=== PATIENT | female | born 1970 | race Caucasian/White ===

== ENCOUNTER 2016-11-14 13:18 | Emergency (ER) | payer SELFPAY ==
[~2016-11-14] VITALS: Ht 172.7 cm; Wt 80.0 kg
[~2016-11-14 13:18] MED LIST: ALEVE220 M1 OR; AUGMENTIN875TAB PO; B-12500 MC1 OR; CIPRO500 MG OR; DARVOCET N-100100 - OR; DARVOCET-N100 MG OR; DOXYCYC MONO100 MG OR; DOXYCYCL HYC100 MG OR; FERR SULFATE325 MG PO; FIORICET PO; FLAGYL500 MG OR; FOLIC ACID1 MG PO; GENTAMICIN SULF5 ML OS; HYDROCHLOROT12.5 MG PO; IBUPROFEN600 MG PO; LORTAB 5 OR; LORTAB 7.5 OR; LORTAB5 OR; MEDDOSEPAK OR; MERCAPTOPUR50 MG OR; MULTIVITAMIN OR; OGESTREL OR; ORTHO TRI-CYCLEN LO PO; PREDNISONE20 MG OR; PREMARIN1.25 MG PO; PRILOSEC20 MG OR; PT DOES NOT KNOW; REMICADE INJ100 MG IV; STOOL SOFTENER100 MG PO; TRAMADOL HCL50 MG OR; ULTRAM50 M1 OR; ULTRAM50 MG OR; WELLBUTRIN SR150 MG PO; WELLBUTRIN150 M1 OR; ZITHROMAX500 MG PO; ZOFRAN ODT4 MG OR; ZOFRAN4 M1 SL; ZOFRAN4 MG/TAB PO; [UNRECOGNIZED DRUG - REMARK]; [UNRECOGNIZED DRUG - REMARK]
[2016-11-14 14:40] LABS: HEMOGLOBIN 13.1 g/dl (12.0-16.0); IMMATURE GRANULOCYTES 0.3 % (0.0-1.0); MEAN CELL VOLUME 91.1 fL CALC (80.0-100.0); MEAN CORPUSCULAR HGB 29.1 pG CALC (26.0-32.0); NEUT# 5.68 thou/uL (2.00-7.15); RED BLOOD COUNT 4.5 mill/uL (4.20-5.60); RED CELL DISTRI WIDTH 13.2 % (11.5-15.5)
[2016-11-14 14:42] LABS: URINE BILIRUBIN - DIPSTICK NEGATIVE (NEGATIVE); URINE BLOOD DIPSTICK SMALL (NEGATIVE); URINE CLARITY CLEAR; URINE COLOR YELLOW; URINE GLUCOSE - DIPSTICK NEGATIVE (NEGATIVE); URINE KETONE NEGATIVE (NEGATIVE); URINE LEUK ESTERASE NEGATIVE (NEGATIVE); URINE NITRITE - DIPSTICK NEGATIVE (Negative); URINE PROTEIN - DIPSTICK NEGATIVE (NEG-TRACE); URINE SPECIFIC GRAVITY 1.015; URINE UROBILINOGEN - DIPSTICK 0.2 E.U./dL (0.2)
[2016-11-14 14:45] LABS: BARBITURATES NEGATIVE (NEGATIVE); COCAINE NEGATIVE (NEGATIVE); METHADONE NEGATIVE (NEGATIVE); OXCYCODONE NEGATIVE (NEGATIVE); TETRAHYDROCANNABIONOL NEGATIVE (NEGATIVE); TRICYLIC ANTIDEPRESSANTS NEGATIVE (NEGATIVE)
[2016-11-14 14:53] LABS: URINE SQUAMOUS EPITHELIAL CELL FEW EPI/hpf (0-FEW); URINE WBC 0-2 WBC/hpf (0-5)
[2016-11-14 14:54] LABS: ALBUMIN 4.5 g/dL (3.2-5.0); ALKALINE PHOSPHATASE 73 u/l (38-126); ANION GAP 18 (6-22 (CALC)); BILIRUBIN, TOTAL 0.4 mg/dL (0.0-1.4); BUN 8 mg/dL (7-17); BUN/CREATININE RATIO 12 (12-20 (CALC)); CALCIUM 9.5 mg/dL (8.4-10.2); CARBON DIOXIDE 27 mmol/l (22-30); CHLORIDE 104 mmol/l (95-108); CREATININE 0.7 mg/dL (0.5-1.0); GFR > 60 ML/MIN (>=60 (CALC)); GFR FOR AFR.AMER. > 60 ML/MIN (>=60 (CALC)); GLUCOSE 75 mg/dL (65-105); POTASSIUM 4.2 mmol/l (3.5-5.1); SGOT/AST 19 u/l (14-36); SGPT/ALT 29 u/l (9-52); SODIUM 144 mmol/l (137-146); TOTAL PROTEIN 7.4 g/dL (6.3-8.2)
[2016-11-14] MEDS ORDERED: ANTIVERT PO (15:39)
[2016-11-14] MEDS ORDERED: ZOFRAN ODT4 MG PO (15:39)
[2016-11-14 16:00] VITALS: BP 124/58
== END 2016-11-14 16:00 | disposition home or self-care (01) | DRG 149 ==
LOC: ED 13:18
PROVIDERS: Emergency Medicine
DX: R42 Dizziness and giddiness (principal); R11.0 Nausea

== ENCOUNTER 2017-12-02 16:03 | Emergency (ER) | payer SELFPAY ==
[~2017-12-02] VITALS: Ht 172.7 cm; Wt 91.0 kg
[~2017-12-02 16:03] MED LIST changes: +ANTIVERT PO; +ZOFRAN ODT4 MG PO
[2017-12-02 17:06] LABS: URINE BILIRUBIN - DIPSTICK NEGATIVE (NEGATIVE); URINE BLOOD DIPSTICK NEGATIVE (NEGATIVE); URINE COLOR YELLOW; URINE GLUCOSE - DIPSTICK NEGATIVE (NEGATIVE); URINE KETONE NEGATIVE (NEGATIVE); URINE LEUK ESTERASE NEGATIVE (NEGATIVE); URINE NITRITE - DIPSTICK NEGATIVE (Negative); URINE PROTEIN - DIPSTICK NEGATIVE (NEG-TRACE); URINE UROBILINOGEN - DIPSTICK 0.2 E.U./dL (0.2)
[2017-12-02 17:07] LABS: URINE CLARITY CLEAR
[2017-12-02] MEDS ORDERED: AUGMENTIN875TAB PO (19:08)
[2017-12-02] MEDS ORDERED: IBUPROFEN600 MG PO (19:08)
[2017-12-02 19:25] VITALS: BP 136/65
== END 2017-12-02 19:40 | disposition home or self-care (01) | DRG 605 ==
LOC: ED 16:03
DX: S60.571A Other superficial bite of hand of right hand, initial encounter (principal); S61.551A Open bite of right wrist, initial encounter; W54.0XXA Bitten by dog, initial encounter; Y93.K9 Activity, other involving animal care; Y92.009 Unspecified place in unspecified non-institutional (private) residence as the place of occurrence of the external cause

== ENCOUNTER 2017-12-05 16:13 | Emergency (ER) | payer SELFPAY ==
[~2017-12-05] VITALS: Ht 172.7 cm; Wt 100.0 kg
[2017-12-05 17:48] VITALS: BP 138/79
== END 2017-12-05 17:50 | disposition home or self-care (01) | DRG 950 ==
LOC: ED 16:13
DX: S51.851D Open bite of right forearm, subsequent encounter (principal); W54.0XXD Bitten by dog, subsequent encounter; Z23 Encounter for immunization

== ENCOUNTER 2018-03-12 08:53 | Emergency (ER) | payer OTHER ==
[~2018-03-12] VITALS: Ht 172.7 cm; Wt 100.0 kg
[2018-03-12 09:37] LABS: HEMATOCRIT 43.1 % (37.0-47.0); HEMOGLOBIN 14.7 g/dl (12.0-16.0); IMMATURE GRANULOCYTES 0.4 % (0.0-5.0); MEAN CELL VOLUME 92.7 fL CALC (80.0-100.0); MEAN CORPUSCULAR HGB 31.6 pG CALC (26.0-32.0); MEAN CORPUSCULAR HGB CONC 34.1 g/L CALC (32.0-36.0); NEUT# 4.81 thou/uL (2.00-7.15); RED BLOOD COUNT 4.65 mill/uL (4.20-5.60); RED CELL DISTRI WIDTH 11.9 % (11.5-15.5)
[2018-03-12] MEDS ORDERED: LISINOPRIL10 M1 PO (09:43)
[2018-03-12 09:58] LABS: ALBUMIN 4.2 g/dL (3.2-5.0); ALKALINE PHOSPHATASE 79 u/l (38-126); ANION GAP 12 (6-22 (CALC)); BILIRUBIN, TOTAL 0.4 mg/dL (0.0-1.4); BUN 14 mg/dL (7-17); BUN/CREATININE RATIO 24 (12-20 (CALC)); CARBON DIOXIDE 28 mmol/l (22-30); CHLORIDE 107 mmol/l (95-108); CREATININE 0.6 mg/dL (0.5-1.0); GFR > 60 ML/MIN (>=60 (CALC)); GFR FOR AFR.AMER. > 60 ML/MIN (>=60 (CALC)); MAGNESIUM 1.8 mg/dL (1.6-2.3); POTASSIUM 4.4 mmol/l (3.5-5.1); SGOT/AST 31 u/l (14-36); SODIUM 142 mmol/l (137-146)
[2018-03-12 10:08] LABS: URINE BILIRUBIN - DIPSTICK NEGATIVE (NEGATIVE); URINE BLOOD DIPSTICK NEGATIVE (NEGATIVE); URINE COLOR YELLOW; URINE GLUCOSE - DIPSTICK NEGATIVE (NEGATIVE); URINE KETONE NEGATIVE (NEGATIVE); URINE LEUK ESTERASE NEGATIVE (NEGATIVE); URINE NITRITE - DIPSTICK NEGATIVE (Negative); URINE PROTEIN - DIPSTICK NEGATIVE (NEG-TRACE); URINE UROBILINOGEN - DIPSTICK 0.2 E.U./dL (0.2)
[2018-03-12 10:09] LABS: MYOGLOBIN 23 ng/mL (0 - 62)
[2018-03-12 10:13] LABS: URINE CLARITY CLEAR
[2018-03-12] MEDS ORDERED: ANTIVERT PO (10:34)
[2018-03-12 10:39] VITALS: BP 177/81
== END 2018-03-12 10:49 | disposition home or self-care (01) ==
LOC: ED 08:53
PROVIDERS: Family Medicine
DX: R42 Dizziness and giddiness (principal); R00.2 Palpitations; R91.1 Solitary pulmonary nodule; R11.2 Nausea with vomiting, unspecified; R10.11 Right upper quadrant pain
CPT/HCPCS: J2060

== ENCOUNTER 2018-05-02 09:13 | Emergency (ER) | payer OTHER ==
[~2018-05-02] VITALS: Ht 172.7 cm; Wt 100.0 kg
[~2018-05-02 09:13] MED LIST changes: +LISINOPRIL10 M1 PO
[2018-05-02 10:31] LABS: INFLUENZA A NONE DETECTED (NONE DETECT); INFLUENZA B NONE DETECTED (NONE DETECT)
[2018-05-02 11:05] LABS: HEMATOCRIT 44.3 % (37.0-47.0); IMMATURE GRANULOCYTES 0.4 % (0.0-5.0); MEAN CELL VOLUME 94.1 fL CALC (80.0-100.0); MEAN CORPUSCULAR HGB 31.8 pG CALC (26.0-32.0); MEAN CORPUSCULAR HGB CONC 33.9 g/L CALC (32.0-36.0); NEUT# 3.44 thou/uL (2.00-7.15); RED BLOOD COUNT 4.71 mill/uL (4.20-5.60); RED CELL DISTRI WIDTH 12.4 % (11.5-15.5)
[2018-05-02 11:24] LABS: ALBUMIN 4.2 g/dL (3.2-5.0); ALKALINE PHOSPHATASE 66 u/l (38-126); ANION GAP 13 (6-22 (CALC)); BILIRUBIN, TOTAL 0.6 mg/dL (0.0-1.4); BUN 10 mg/dL (7-17); BUN/CREATININE RATIO 19 (12-20 (CALC)); CARBON DIOXIDE 27 mmol/l (22-30); CHLORIDE 108 mmol/l (95-108); CREATININE 0.5 mg/dL (0.5-1.0); GFR > 60 ML/MIN (>=60 (CALC)); GFR FOR AFR.AMER. > 60 ML/MIN (>=60 (CALC)); POTASSIUM 4.6 mmol/l (3.5-5.1); SGOT/AST 26 u/l (14-36); SODIUM 143 mmol/l (137-146); TOTAL PROTEIN 7.2 g/dL (6.3-8.2)
[2018-05-02] MEDS ORDERED: ZPAK PO (12:05)
[2018-05-02] MEDS ORDERED: ROBITUSSIN AC10 ML PO (12:24)
[2018-05-02 12:25] VITALS: BP 128/77
== END 2018-05-02 12:58 | disposition home or self-care (01) ==
LOC: ED 09:13
PROVIDERS: Emergency Medicine
DX: J18.9 Pneumonia, unspecified organism (principal); I10 Essential (primary) hypertension; F41.9 Anxiety disorder, unspecified; R50.9 Fever, unspecified; R05 Cough
CPT/HCPCS: Q9967

== ENCOUNTER 2018-08-24 17:40 | Emergency (ER) | payer MEDICAID ==
[~2018-08-24] VITALS: Ht 172.7 cm; Wt 90.0 kg
[~2018-08-24 17:40] MED LIST changes: +ROBITUSSIN AC10 ML PO; +ZPAK PO
[2018-08-24] MEDS ORDERED: WELLBUTRIN SR150 MG PO (18:01)
[2018-08-24 18:23] LABS: HEMOGLOBIN 14.5 g/dl (12.0-16.0); IMMATURE GRANULOCYTES 0.4 % (0.0-5.0); MEAN CELL VOLUME 94.4 fL CALC (80.0-100.0); MEAN CORPUSCULAR HGB 31.1 pG CALC (26.0-32.0); NEUT# 6.63 thou/uL (2.00-7.15); RED BLOOD COUNT 4.66 mill/uL (4.20-5.60); RED CELL DISTRI WIDTH 12.6 % (11.5-15.5)
[2018-08-24 18:41] LABS: ALKALINE PHOSPHATASE 67 u/l (38-126); AMYLASE 37 u/l (30-110); ANION GAP 13 (6-22 (CALC)); BILIRUBIN, TOTAL 0.3 mg/dL (0.0-1.4); BUN 15 mg/dL (7-17); BUN/CREATININE RATIO 28 (12-20 (CALC)); CARBON DIOXIDE 27 mmol/l (22-30); CHLORIDE 106 mmol/l (95-108); CREATININE 0.5 mg/dL (0.5-1.0); GFR > 60 ML/MIN (>=60 (CALC)); GFR FOR AFR.AMER. > 60 ML/MIN (>=60 (CALC)); LIPASE 63 u/l (23-300); POTASSIUM 3.9 mmol/l (3.5-5.1); SGOT/AST 27 u/l (14-36); SODIUM 142 mmol/l (137-146); TOTAL PROTEIN 6.7 g/dL (6.3-8.2)
[2018-08-24 20:17] LABS: URINE BILIRUBIN - DIPSTICK NEGATIVE (NEGATIVE); URINE BLOOD DIPSTICK NEGATIVE (NEGATIVE); URINE COLOR YELLOW; URINE GLUCOSE - DIPSTICK NEGATIVE (NEGATIVE); URINE KETONE NEGATIVE (NEGATIVE); URINE LEUK ESTERASE NEGATIVE (NEGATIVE); URINE NITRITE - DIPSTICK NEGATIVE (Negative); URINE PROTEIN - DIPSTICK NEGATIVE (NEG-TRACE); URINE SPECIFIC GRAVITY 1.025; URINE UROBILINOGEN - DIPSTICK 0.2 E.U./dL (0.2)
[2018-08-24] MEDS ORDERED: PEPCID20 MG PO (21:31)
[2018-08-24 22:22] VITALS: BP 114/64
== END 2018-08-24 22:22 | disposition home or self-care (01) ==
LOC: ED 17:40
DX: K21.9 Gastro-esophageal reflux disease without esophagitis (principal); R07.89 Other chest pain; I10 Essential (primary) hypertension
CPT/HCPCS: S0164

== ENCOUNTER 2018-11-20 13:59 | Emergency (ER) | payer MEDICAID ==
[~2018-11-20] VITALS: Ht 172.7 cm; Wt 100.0 kg
[~2018-11-20 13:59] MED LIST changes: +PEPCID20 MG PO
[2018-11-20 15:17] LABS: HEMATOCRIT 41.7 % (37.0-47.0); HEMOGLOBIN 14.1 g/dl (12.0-16.0); IMMATURE GRANULOCYTES 0.4 % (0.0-5.0); MEAN CELL VOLUME 92.3 fL CALC (80.0-100.0); MEAN CORPUSCULAR HGB 31.2 pG CALC (26.0-32.0); MEAN CORPUSCULAR HGB CONC 33.8 g/L CALC (32.0-36.0); NEUT# 5.5 thou/uL (2.00-7.15); RED BLOOD COUNT 4.52 mill/uL (4.20-5.60); RED CELL DISTRI WIDTH 11.8 % (11.5-15.5)
[2018-11-20 15:32] LABS: ALBUMIN 4.1 g/dL (3.2-5.0); ALKALINE PHOSPHATASE 81 u/l (38-126); ANION GAP 14 (6-22 (CALC)); BILIRUBIN, TOTAL 0.5 mg/dL (0.0-1.4); BUN 13 mg/dL (7-17); BUN/CREATININE RATIO 23 (12-20 (CALC)); CARBON DIOXIDE 26 mmol/l (22-30); CHLORIDE 105 mmol/l (95-108); CREATININE 0.6 mg/dL (0.5-1.0); GFR > 60 ML/MIN (>=60 (CALC)); GFR FOR AFR.AMER. > 60 ML/MIN (>=60 (CALC)); POTASSIUM 3.7 mmol/l (3.5-5.1); SGOT/AST 21 u/l (14-36); SODIUM 141 mmol/l (137-146); TOTAL PROTEIN 6.7 g/dL (6.3-8.2)
[2018-11-20] MEDS ORDERED: PROVENTIL HFA IN (17:18)
[2018-11-20] MEDS ORDERED: ZITHROMAX250 MG PO (17:18)
[2018-11-20] MEDS ORDERED: XANAX0.25 MG PO (17:18)
[2018-11-20 17:35] VITALS: BP 165/96
== END 2018-11-20 17:40 | disposition home or self-care (01) ==
LOC: ED 13:59
PROVIDERS: Emergency Medicine
DX: J18.9 Pneumonia, unspecified organism (principal); F41.9 Anxiety disorder, unspecified; R00.2 Palpitations; R11.0 Nausea

== ENCOUNTER 2019-02-08 18:57 | Emergency (ER) | payer SELFPAY ==
[~2019-02-08] VITALS: Ht 172.7 cm; Wt 100.0 kg
[~2019-02-08 18:57] MED LIST changes: +PROVENTIL HFA IN; +XANAX0.25 MG PO; +ZITHROMAX250 MG PO
[2019-02-08] MEDS ORDERED: LISINOPRIL10 MG PO (19:54)
[2019-02-08 22:32] VITALS: BP 140/60
== END 2019-02-08 22:35 | disposition home or self-care (01) | DRG 392 ==
LOC: ED 18:57
DX: R13.10 Dysphagia, unspecified (principal); I10 Essential (primary) hypertension
CPT/HCPCS: J1610

== ENCOUNTER 2019-05-21 11:16 | Emergency (ER) | payer MEDICAID ==
[~2019-05-21] VITALS: Ht 172.7 cm; Wt 90.0 kg
[~2019-05-21 11:16] MED LIST changes: +LISINOPRIL10 MG PO
[2019-05-21] MEDS ORDERED: BUPROPION HCL150 M1 PO (11:28)
[2019-05-21] MEDS ORDERED: WELLBUTRIN SR100 MG PO (11:29)
[2019-05-21] MEDS ORDERED: ATORVASTATIN CA10 MG PO (11:29)
[2019-05-21] MEDS ORDERED: ZPAK PO (11:30)
[2019-05-21 12:16] LABS: HEMATOCRIT 44.6 % (37.0-47.0); HEMOGLOBIN 14.8 g/dl (12.0-16.0); IMMATURE GRANULOCYTES 0.5 % (0.0-5.0); MEAN CELL VOLUME 93.1 fL CALC (80.0-100.0); MEAN CORPUSCULAR HGB 30.9 pG CALC (26.0-32.0); MEAN CORPUSCULAR HGB CONC 33.2 g/L CALC (32.0-36.0); NEUT# 5.13 thou/uL (2.00-7.15); RED BLOOD COUNT 4.79 mill/uL (4.20-5.60)
[2019-05-21 12:43] LABS: ANION GAP 16 (6-22 (CALC)); BUN 21 mg/dL (7-17); BUN/CREATININE RATIO 36 (12-20 (CALC)); CARBON DIOXIDE 26 mmol/l (22-30); CHLORIDE 103 mmol/l (95-108); CREATININE 0.6 mg/dL (0.5-1.0); GFR > 60 ML/MIN (>=60 (CALC)); GFR FOR AFR.AMER. > 60 ML/MIN (>=60 (CALC)); POTASSIUM 4.4 mmol/l (3.5-5.1); SODIUM 141 mmol/l (137-146)
[2019-05-21 14:12] VITALS: BP 135/76
== END 2019-05-21 14:33 | disposition home or self-care (01) ==
LOC: ED 11:16
PROVIDERS: Family Medicine
DX: J02.9 Acute pharyngitis, unspecified (principal); I10 Essential (primary) hypertension; M54.2 Cervicalgia; R22.1 Localized swelling, mass and lump, neck; R50.9 Fever, unspecified
CPT/HCPCS: Q9967